=== PATIENT | male | born 1980 | race Caucasian/White ===

== ENCOUNTER 2023-11-11 16:21 | Emergency (ER) | payer MEDICAID, OTHER ==
[~2023-11-11] VITALS: Ht 193 cm; Wt 86.5 kg
[2023-11-11] MEDS: TETanus/Pertussis (Acell)/Diphther VAC/PF (Tdap-Adult) 0.5ml syringe IMVAC ONE (17:11)
[2023-11-11] MEDS: rabies vaccine (PCEC)/PF 2.5 unit kit IMVAC ONE (17:12)
[2023-11-11] MEDS: rabies immune globulin/PF 150 unit/ml inj IMVAC STA (17:17)
[2023-11-11] MEDS ORDERED: AMOX-117 PO (17:48)
[2023-11-11 18:03] VITALS: BP 124/73; PULSE 77; RESP 16; TEMP 98; O2SAT 99
== END 2023-11-11 18:04 | disposition home or self-care (01) ==
LOC: ER 16:22
DX: S51.851A Open bite of right forearm, initial encounter (principal); Z20.3 Contact with and (suspected) exposure to rabies; Z79.2 Long term (current) use of antibiotics; W55.01XA Bitten by cat, initial encounter; Y93.89 Activity, other specified; Y92.89 Other specified places as the place of occurrence of the external cause; Y99.8 Other external cause status
CPT/HCPCS: 90376; 90471; 90472; 90675; 90715; 96372; 99284

== ENCOUNTER 2023-11-15 12:47 | Emergency (ER) | payer MEDICAID ==
[~2023-11-15] VITALS: Ht 193 cm; Wt 90.9 kg
[~2023-11-15 12:47] MED LIST: AMOX-117 PO
[2023-11-15 12:58] VITALS: BP 105/50; PULSE 85; RESP 18; TEMP 98.8; O2SAT 98
[2023-11-15] MEDS: rabies vaccine (PCEC)/PF 2.5 unit kit IMVAC ONE (14:03)
== END 2023-11-15 14:05 | disposition home or self-care (01) ==
LOC: ER 12:47
DX: Z23 Encounter for immunization (principal); Z79.2 Long term (current) use of antibiotics
CPT/HCPCS: 90471; 90675; 99281